=== PATIENT | male | born 1950 | race Caucasian/White ===

== ENCOUNTER 2024-07-18 09:18 | Emergency (ER) | payer MEDICARE, BC | END 2024-07-18 10:22 | disposition designated cancer center or children's hospital (05) | LOC: DL.ED 09:18 | DX: D64.81 Anemia due to antineoplastic chemotherapy (principal); T45.1X5A Adverse effect of antineoplastic and immunosuppressive drugs, initial encounter | CPT/HCPCS: 99283; 99285 ==